=== PATIENT | male | born 1990 | race Caucasian/White ===

== ENCOUNTER 2022-05-31 13:49 | Emergency (ER) | payer MEDICAID, SELFPAY ==
[2022-05-31 14:10] VITALS: BP 152/104; PULSE 67; RESP 20; O2SAT 98; BMI 34.5
--- NOTE | 2022-05-31 14:18 | ED_ITS ---
HPI - Abdominal Pain General Chief Complaint: Abdominal Pain Stated Complaint: Abd pain Time Seen by Provider: 05/31/22 19:44 Related Data Allergies Allergy/AdvReac Type Severity Reaction Status Date / Time No Known Allergies Allergy Verified 05/31/22 14:14 [facility] Social History Social History Advance Directives: No Advance Directives Information Provided: No Physical Exam ED Vital Signs: Vital Signs - 24 hr 05/31/22 14:10 Pulse Rate 67 Respiratory Rate 20 Blood Pressure 152/104 H Pulse Oximetry 98 Oxygen Delivery Method Room Air BMI result Body Mass Index 34.5 MDM - Abdominal Pain Lab Data Result diagrams: 05/31/22 14:22 05/31/22 14:22 Labs: Lab Results 05/31/22 05/31/22 05/31/22 Range/Units 14: 14: 14:22 WBC 15.8 H (4.8-10.8) X10*3/uL RBC 5.53 (4.60-5.80) X10*6/uL Hgb 14.9 (14.0-18.0) g/dl Hct 45.3 (42.0-52.0) % MCV 81.9 (80.0-98.0) fL MCH 26.9 L (27.0-33.0) pg MCHC 32.9 (31.0-36.0) g/dl RDW 13.4 (11.0-16.0) % Plt Count 280 (160-400) X10*3/uL MPV 11.0 (9.4-12.4) fL Immature Gran % (Auto) 0.4 (0.0-0.4) % Neut % (Auto) 77.5 H (45-73) % Lymph % (Auto) 14.2 L (20-40) % [place] % (Auto) 6.5 (2-11) % Eos % (Auto) 1.0 (0-4) % Baso % (Auto) 0.4 (0-2) % Lymph # (Auto) 2.2 (1.2-4.9) X10*3/uL [place] # (Auto) 1.0 (0.1-1.2) X10*3/uL Eos # (Auto) 0.2 (0.0-0.4) X10*3/uL Baso # (Auto) 0.1 (0.0-0.2) X10*3/uL Abs Immat Gran (auto) 0.06 H (0.00-0.03) X10*3/uL Absolute Neuts (auto) 12.2 H (2.0-8.3) x10*3/uL Absolute Nucleated RBC 0.000 (0.0-0.012) X10*3/uL Nucleated RBC % (auto) 0.0 (0.0-0.2) /100WBC Sodium 138 (135-145) mmol/L Potassium 4.4 (3.3-5.1) mmol/L Chloride 105 (96-108) mmol/L Carbon Dioxide 26 (22-29) mmol/L Anion Gap 11 L (12-20) BUN 16 (9-16) mg/dL Creatinine 0.83 (0.5-1.4) mg/dL Estim Creat Clear Calc 164.6 Estimated GFR > 60 Random Glucose 108 (60-115) mg/dL Calcium 9.4 (8.4-10.2) mg/dL Urine Color Yellow Urine Appearance Clear Urine pH 5.5 (5.0-9.0) Ur Specific [place] >= 1.030 H (1.005-1.025) Urine Protein Trace (Neg-Trace) mg/dL Urine Glucose (UA) Negative (Negative) mg/dL Urine Ketones Trace (Negative) mg/dL Urine Blood Negative (Negative) Urine Nitrite Negative (Negative) Ur Leukocyte Esterase Negative (Negative) Discharge Plan Discharge Clinical Impression: Pain in the abdomen Patient Disposition: Elopement
[2022-05-31 14:27] LABS: MANUAL DIFF FLAG NO
[2022-05-31 14:28] LABS: Basophils Absolute Auto 0.1 X10*3/uL (0.0-0.2); Basophils Percent Auto 0.4 % (0-2); Eosinophils Absolute Auto 0.2 X10*3/uL (0.0-0.4); Hematocrit 45.3 % (42.0-52.0); Hemoglobin 14.9 g/dl (14.0-18.0); Imm Gran Abs Auto 0.06 X10*3/uL (0.00-0.03); Imm Gran Pct Auto 0.4 % (0.0-0.4); Lymphocytes Absolute Auto 2.2 X10*3/uL (1.2-4.9); Lymphocytes Percent Auto 14.2 % (20-40); Mean Corpuscular HGB Conc 32.9 g/dl (31.0-36.0); Mean Corpuscular Hemoglobin 26.9 pg (27.0-33.0); Mean Corpuscular Volume 81.9 fL (80.0-98.0); Monocytes Percent Auto 6.5 % (2-11); Neutrophils Absolute Auto 12.2 x10*3/uL (2.0-8.3); Neutrophils Percent Auto 77.5 % (45-73); Platelet Count 280 X10*3/uL (160-400); Red Blood Count 5.53 X10*6/uL (4.60-5.80); Red Cell Distribution Width 13.4 % (11.0-16.0); White Blood Count 15.8 X10*3/uL (4.8-10.8)
[2022-05-31 14:35] LABS: Appearance Urine Clear; Color Urine Yellow; Glucose Urine UA Negative (Negative); Leukocyte Esterase Urine Negative (Negative); Nitrite Urine Negative (Negative); PH 5.5 (5.0-9.0); Specific Gravity - Urine >= 1.030 (1.005-1.025); Urine Blood Negative (Negative); Urine Ketones Trace mg/dL (Negative); Urine Protein Trace mg/dL (Neg-Trace)
[2022-05-31 14:48] LABS: Anion Gap 11 (12-20); Blood Urea Nitrogen 16 mg/dL (9-16); Calcium 9.4 mg/dL (8.4-10.2); Carbon Dioxide 26 mmol/L (22-29); Chloride 105 mmol/L (96-108); Creatinine Clr Calc Pharmacy 164.6; Estimated Glomerular Filt Rate > 60; Glucose Random 108 mg/dL (60-115); Potassium 4.4 mmol/L (3.3-5.1); Sodium 138 mmol/L (135-145)
== END 2022-06-01 03:44 | disposition left against medical advice (07) ==
PROVIDERS: Emergency Medicine; Emergency Provider Emergency Medicine
DX: R10.9 Unspecified abdominal pain (principal); F12.90 Cannabis use, unspecified, uncomplicated
CPT/HCPCS: 36415; 80048; 81003; 85025; 99281; 99283

== ENCOUNTER 2022-06-01 20:22 | Emergency (ER) | payer MEDICAID, SELFPAY ==
--- NOTE | ~2022-06-01 | US_ITS ---
EXAMINATION: US SCROTUM CLINICAL INFORMATION: Left testicular pain. COMPARISON: None TECHNIQUE: A sonogram of the scrotum was performed assessing heck-scale appearance and color Doppler flow. Spectral Doppler analysis of the arterial and venous flow were performed in the testes bilaterally. FINDINGS: RIGHT: Right testicle measures 4.3 x 2.4 x 2.6 cm, volume 14 mL. No focal testicular parenchymal lesions are visualized. Mildly heterogeneous testicular parenchyma. Spectral Doppler analysis of the arterial and venous flow is increased in the right testis. Right epididymal head is normal in size. No right hydrocele or varicocele is seen. Right epididymal Doppler flow is increased. LEFT: Left testicle measures 3.4 x 1.8 x 2.4 cm, volume 7.7 mL. No focal testicular parenchymal lesions are visualized. Spectral Doppler analysis of the arterial and venous flow is increased in the left testis. Left epididymal head is normal in size. No left hydrocele or varicocele is seen. Left epididymal Doppler flow is increased. US/US scrotum doppler IMPRESSION: * Mildly decreased bilateral testicular volume, particularly on the left. * Mildly heterogeneous bilateral testicular parenchyma is nonspecific. * Per report, the vascularity within the bilateral testicles and epididymides is increased, however symmetrically. As such, this finding may be artifactual. The heterogeneous testicular parenchyma, however, could be compatible with orchitis, in this case, bilateral.
--- NOTE | ~2022-06-01 | US_ITS ---
EXAMINATION: US SCROTUM CLINICAL INFORMATION: Left testicular pain. COMPARISON: None TECHNIQUE: A sonogram of the scrotum was performed assessing heck-scale appearance and color Doppler flow. Spectral Doppler analysis of the arterial and venous flow were performed in the testes bilaterally. FINDINGS: RIGHT: Right testicle measures 4.3 x 2.4 x 2.6 cm, volume 14 mL. No focal testicular parenchymal lesions are visualized. Mildly heterogeneous testicular parenchyma. Spectral Doppler analysis of the arterial and venous flow is increased in the right testis. Right epididymal head is normal in size. No right hydrocele or varicocele is seen. Right epididymal Doppler flow is increased. LEFT: Left testicle measures 3.4 x 1.8 x 2.4 cm, volume 7.7 mL. No focal testicular parenchymal lesions are visualized. Spectral Doppler analysis of the arterial and venous flow is increased in the left testis. Left epididymal head is normal in size. No left hydrocele or varicocele is seen. Left epididymal Doppler flow is increased. US/US scrotum IMPRESSION: * Mildly decreased bilateral testicular volume, particularly on the left. * Mildly heterogeneous bilateral testicular parenchyma is nonspecific. * Per report, the vascularity within the bilateral testicles and epididymides is increased, however symmetrically. As such, this finding may be artifactual. The heterogeneous testicular parenchyma, however, could be compatible with orchitis, in this case, bilateral.
--- NOTE | ~2022-06-01 | CT_ITS ---
EXAMINATION: CT ABDOMEN AND PELVIS WITH CONTRAST CLINICAL INFORMATION: Left lower quadrant pain COMPARISON: None TECHNIQUE: Multidetector volumetric images were obtained from the superior aspect of the liver through the pubic symphysis following administration 85 mL of Omnipaque 350 intravenous contrast. Sagittal and coronal reformatted images were obtained on the technologist's workstation. Oral contrast: No This CT examination was performed using dose optimization techniques as appropriate, variously including the following: *Automated exposure control *Adjustment of mA and/or kV according to patient size (this includes techniques or standardized protocols for targeted exams where dose is matched to indication/reason for exam; i.e. extremities or head) *Use of iterative reconstruction technique DLP: 832 mGy-cm FINDINGS: LUNG BASES: The visualized lung bases are unremarkable. LIVER, GALLBLADDER, AND BILIARY TREE: The liver is normal in size, shape, and attenuation. No focal hepatic lesion or biliary ductal dilatation is present. The gallbladder is unremarkable with no evidence of radiopaque gallstones, gallbladder wall thickening, or obvious pericholecystic inflammatory changes. PANCREAS: Unremarkable. SPLEEN: Unremarkable. ADRENAL GLANDS: Unremarkable. KIDNEYS AND URETERS: The kidneys are normal in size, shape, and attenuation. There is a 6 mm hypodensity seen in the left mid kidney which does not measure water density and is therefore indeterminate. No hydronephrosis, hydroureter, or calculi seen. No perinephric stranding. BLADDER: Unremarkable. GASTROINTESTINAL TRACT: The small and large bowel are unremarkable. The appendix is unremarkable. ABDOMINAL WALL: No significant hernia is appreciated. LYMPH NODES: Shotty retroperitoneal lymph nodes are present but there is no adenopathy. VASCULAR: Unremarkable. PELVIC VISCERA: Unremarkable. OSSEOUS STRUCTURES: Unremarkable. CT/CT abdomen pelvis w IV con IMPRESSION: 1. A cause for the patient's left lower quadrant pain has not been found. 2. Incidental note made of a 6 mm hypodensity in the left mid kidney which does not measure water density. This could be a complex cyst or a small solid mass. Ultrasound should be performed for further evaluation. Fleischner guidelines were followed.
[2022-06-01 20:33] VITALS: BP 172/103; PULSE 82; RESP 18; TEMP 36.5; O2SAT 98; BMI 31.8
--- NOTE | 2022-06-01 20:35 | ED.GENADULT ---
HPI - General Adult General Chief complaint: Urogenital-Male Stated complaint: Pain L abdominal/ groin area Time Seen by Provider: 06/01/22 20:30 Source: patient Mode of arrival: ambulatory Limitations: no limitations History of Present Illness HPI narrative: This is a 32-year-old male no significant medical history presenting to the emergency department with complaints of severe left-sided testicular pain x2 days. Patient tells me that yesterday he felt some discomfort to his left lower abdomen and then realize that really he was feeling pain in his testicle as well. Pain came on suddenly. He rates it as greater than 10/10 and constant w/o radiation. He tells me it is worse with ambulation and movement better at rest. Tells me he has not been able to tolerate p.o.. He tells me his testicle is tender to the touch. He tells me when he looks at his testicles no noted abnormalities. He denies concerns for STDs or STIs would not like prophylactic treatment. Patient tells me he is not having abdominal pain however is constipated and has not had a bowel movement for 2 days, reports he typically has daily bowel movements. Denies fevers, chills, chest pain, shortness of breath, abdominal pain, headache, vision changes, penile discharge, rashes or lesions in genital area, new sexual partners. Related Data Previous Rx's Medication Instructions Recorded levofloxacin 750 mg tablet 750 mg PO DAILY 14 days #14 tabs 06/01/22 morphine 15 mg immediate release 15 mg PO BID PRN pain #8 tabs 06/01/22 tablet Allergies Allergy/AdvReac Type Severity Reaction Status Date / Time No Known Allergies Allergy Verified 06/01/22 20:32 Review of Systems Review of Systems: Constitutional : No Weight loss, No Fever, No Chills, No Fatigue, No Malaise ENT/Mouth : No sore throat, No Rhinorrhea Eyes: No Eye Pain, No Swelling, No Redness Cardiovascular : No Chest Pain, No SOB, No Dyspnea on Exertion, No Orthopnea, No Edema, No Palpitations Respiratory : No Cough, No Sputum, No Wheezing Gastrointestinal : No Nausea, No Vomiting, No Diarrhea, No Constipation, No abdominal Pain, No Hematochezia, No Melena Genitourinary : No Dysuria, No Urinary Frequency, No Hematuria, + left sided testicular pain Musculoskeletal : No joint pain, No Myalgias, No Joint Swelling Skin : No Skin Lesions, No rash Neuro : No Weakness, No Numbness, No Dizziness, No Headache Psych : No Anxiety/Panic, No Depression All other systems reviewed and are negative Yes all other systems are reviewed and are negative [facility] Past Medical History Attestation statement: The following information was validated with the patient. Source: old records reviewed and nursing notes reviewed Social History Social History Smoked in Last 30 Days: Yes Use of substances other than those prescribed or required for medical reasons: Yes Substance Use Type: Marijuana Advance Directives: No Advance Directives Information Provided: Yes Physical Exam ED Vital Signs: Vital Signs - 24 hr 06/01/22 20:33 06/01/22 21:49 06/01/22 22:04 Temperature 97.7 F 98.9 F 98.9 F Pulse Rate 82 70 57 Respiratory Rate 18 20 20 Blood Pressure 172/103 H 138/74 Pulse Oximetry 98 100 Oxygen Delivery Method Room Air Room Air BMI result Body Mass Index 31.8 vss Appearance: Alert.? Oriented X3.? No acute distress.? Head: Normocephalic, atraumatic, no step-offs or deformities Eyes: Pupils equal, round and reactive to light.? Neck: Normal inspection.? Neck supple.? CVS: Normal heart rate and rhythm.? Pulses normal.? Respiratory: No respiratory distress.? Breath sounds normal.? Abdomen: Soft and nontender.? Skin: Skin warm and dry.? Normal skin color.? Normal skin turgor.? Extremities: No lower extremity edema.? No calf ttp. 5/5 strength to bilateral upper and lower extremities : Pain with palpation of left-sided testicle, no pain with palpation of right-sided testicle. No lumps or masses appreciable on exam. No overlying erythema or warmth. Hard to assess cremasteric reflex patient is jerking in pain. Normal external genitalia, no penile discharge no lesions lumps or masses. Neuro: Oriented X 3.? No motor deficit.? No sensory deficit. CN 2-12 intact Course Reevaluation(s) Reevaluation #1: CBC with slight leukocytosis, chemistry with no acute electrolyte abnormalities requiring intervention. Urine clean. CT of the abdomen and pelvis with no acute findings. Incidental note with 6 mm hypodensity in the left mid kidney. Educated patient on this. Scrotal ultrasound as mildly decreased bilateral testicular volume particularly on the left bilateral testicular parenchyma is nonspecific. Vascularity within bilateral testicles and epididymis is increased, concerns for possible orchitis. Chlamydia gonorrhea pending. I had my attending evaluate patient who agrees with my diagnosis and treatment plan likely orchitis however recommended to reach out to urology for treatment plan. No signs of torsion on imaging. Patient was given ceftriaxone here. Will reach out to urology Dr. Yoo Time: 22:40 Reevaluation #2: Discussed this case with Dr. Yoo who states likely orchitis in likely E coli as causative agent in this age group. He reports patient should receive a dose of Rocephin and should be discharged home on 14 days of Levaquin. Will discharge him home with Urology follow-up at this time. Educated to return with new or worsening symptoms. Outlined worrisome signs and symptoms on discharge. Comfortable with discharge home with prompt PCP follow-up, urology follow-up. And return to the emergency department with new or worsening symptoms To know at time of discharge patient feeling better. Time: 22:54 Medications Administered Discontinued Medications Generic Name Dose Route Start Last Admin Trade Name Freq PRN Reason Stop Dose Admin Docusate Sodium 100 mg 06/01/22 21:56 06/01/22 22:04 Docusate Sodium 100 Mg Capsule PO 06/01/22 21:57 100 mg ONCE ONE Administration Ceftriaxone Sodium 1 gm/ 50 mls @ 100 mls/hr 06/01/22 21:56 06/01/22 22:04 Sodium Chloride IV 06/01/22 22:25 100 mls/hr ONCE ONE Administration Iohexol 100 ml 06/01/22 21:44 06/01/22 21:44 Iohexol 350 Mg/Ml 100 Ml Infus..Btl IV 06/01/22 21:45 85 ml ONCE ONE Administration Morphine Sulfate 4 mg 06/01/22 20:40 06/01/22 21:51 Morphine Sulfate 4 Mg/Ml Cartridge IVPUSH 06/01/22 20:41 4 mg ONCE ONE Administration Protocol Ondansetron HCl 4 mg 06/01/22 21:58 06/01/22 22:04 Ondansetron Hcl 4 Mg/2 Ml Vial IVPUSH 06/01/22 21:59 4 mg ONCE ONE Administration Senna 15 ml 06/01/22 21:56 06/01/22 22:04 Senna [place] Extract Oral Syrup 15 Ml Syrup PO 06/01/22 21:57 15 ml ONCE ONE Administration Medical Decision Making [facility] Narrative Medical decision making narrative: [birth year]34 32-year-old male presents with severe left-sided testicular pain x2 days sudden in onset. Reports anorexia, inability to tolerate p.o., nausea. Rates pain greater than 10/10. To note patient was seen here yesterday he checked in with abdominal pain, had labs which showed leukocytosis however patient decided to elope. No imaging was done. Physical examination significant for Pain with palpation of left-sided testicle, no pain with palpation of right-sided testicle. No lumps or masses appreciable on exam. Hard to assess squamous stare reflexes patient is jerking and pain. Normal external genitalia, no penile discharge no lesions lumps or masses. Concerns for testicular torsion scrotal Doppler ultrasound ordered stat. Patient has no concerns for STDs however will obtain gonorrhea and chlamydia test, he does not want prophylactic treatment I explained him of test come back positive we will call him with results he is agreeable to treatment if this happens. Obtain basic labs, urine. Also obtain CT of the abdomen pelvis to rule out intra-abdominal etiologies although less likely. No signs of acute abdomen, diverticulitis, cholecystitis, appendicitis or pancreatitis on exam. Will rule out nephrolithiasis. Will give morphine for pain. Medical Records Medical records reviewed: Yes I reviewed the patient's medical records. Lab Data Lab results reviewed: Yes I reviewed the patient's lab results. Result diagrams: 06/01/22 20:46 06/01/22 20:46 Labs: Lab Results 06/01/22 06/01/22 06/01/22 Range/Units 20:46 20:46 21:20 WBC 13.8 H (4.8-10.8) X10*3/uL RBC 5.59 (4.60-5.80) X10*6/uL Hgb 14.7 (14.0-18.0) g/dl Hct 45.5 (42.0-52.0) % MCV 81.4 (80.0-98.0) fL MCH 26.3 L (27.0-33.0) pg MCHC 32.3 (31.0-36.0) g/dl RDW 13.4 (11.0-16.0) % Plt Count 275 (160-400) X10*3/uL MPV 11.0 (9.4-12.4) fL Immature Gran % (Auto) 0.3 (0.0-0.4) % Neut % (Auto) 70.7 (45-73) % Lymph % (Auto) 20.6 (20-40) % [place] % (Auto) 7.2 (2-11) % Eos % (Auto) 0.9 (0-4) % Baso % (Auto) 0.3 (0-2) % Lymph # (Auto) 2.8 (1.2-4.9) X10*3/uL [place] # (Auto) 1.0 (0.1-1.2) X10*3/uL Eos # (Auto) 0.1 (0.0-0.4) X10*3/uL Baso # (Auto) 0.0 (0.0-0.2) X10*3/uL Abs Immat Gran (auto) 0.04 H (0.00-0.03) X10*3/uL Absolute Neuts (auto) 9.7 H (2.0-8.3) x10*3/uL Absolute Nucleated RBC 0.000 (0.0-0.012) X10*3/uL Nucleated RBC % (auto) 0.0 (0.0-0.2) /100WBC Sodium 141 (135-145) mmol/L Potassium 3.8 (3.3-5.1) mmol/L Chloride 105 (96-108) mmol/L Carbon Dioxide 23 (22-29) mmol/L Anion Gap 17 (12-20) BUN 13 (9-16) mg/dL Creatinine 0.81 (0.5-1.4) mg/dL Estim Creat Clear Calc 176.2 Estimated GFR > 60 Random Glucose 114 (60-115) mg/dL Calcium 9.3 (8.4-10.2) mg/dL Magnesium 2.2 (1.6-2.6) mg/dL Total Bilirubin 0.9 (0.0-1.0) mg/dL AST 20 (5-37) U/L ALT 26 (0-40) U/L Alkaline Phosphatase 79 (39-117) U/L Total Protein 7.1 (6.5-8.0) g/dL Albumin 4.4 (3.5-5.0) g/dL Urine Color Urine Appearance Urine pH (5.0-9.0) Ur Specific [place] (1.005-1.025) Urine Protein (Neg-Trace) mg/dL Urine Glucose (UA) (Negative) mg/dL Urine Ketones (Negative) mg/dL Urine Blood (Negative) Urine Nitrite (Negative) Ur Leukocyte Esterase (Negative) COVID-19 (YUMIKO) Negative (Negative) COVID-19 Clin Com See Note 06/01/22 Range/Units 22:15 WBC (4.8-10.8) X10*3/uL RBC (4.60-5.80) X10*6/uL Hgb (14.0-18.0) g/dl Hct (42.0-52.0) % MCV (80.0-98.0) fL MCH (27.0-33.0) pg MCHC (31.0-36.0) g/dl RDW (11.0-16.0) % Plt Count (160-400) X10*3/uL MPV (9.4-12.4) fL Immature Gran % (Auto) (0.0-0.4) % Neut % (Auto) (45-73) % Lymph % (Auto) (20-40) % [place] % (Auto) (2-11) % Eos % (Auto) (0-4) % Baso % (Auto) (0-2) % Lymph # (Auto) (1.2-4.9) X10*3/uL [place] # (Auto) (0.1-1.2) X10*3/uL Eos # (Auto) (0.0-0.4) X10*3/uL Baso # (Auto) (0.0-0.2) X10*3/uL Abs Immat Gran (auto) (0.00-0.03) X10*3/uL Absolute Neuts (auto) (2.0-8.3) x10*3/uL Absolute Nucleated RBC (0.0-0.012) X10*3/uL Nucleated RBC % (auto) (0.0-0.2) /100WBC Sodium (135-145) mmol/L Potassium (3.3-5.1) mmol/L Chloride (96-108) mmol/L Carbon Dioxide (22-29) mmol/L Anion Gap (12-20) BUN (9-16) mg/dL Creatinine (0.5-1.4) mg/dL Estim Creat Clear Calc Estimated GFR Random Glucose (60-115) mg/dL Calcium (8.4-10.2) mg/dL Magnesium (1.6-2.6) mg/dL Total Bilirubin (0.0-1.0) mg/dL AST (5-37) U/L ALT (0-40) U/L Alkaline Phosphatase (39-117) U/L Total Protein (6.5-8.0) g/dL Albumin (3.5-5.0) g/dL Urine Color Yellow Urine Appearance Clear Urine pH 6.5 (5.0-9.0) Ur Specific [place] 1.020 (1.005-1.025) Urine Protein Negative (Neg-Trace) mg/dL Urine Glucose (UA) Negative (Negative) mg/dL Urine Ketones Negative (Negative) mg/dL Urine Blood Negative (Negative) Urine Nitrite Negative (Negative) Ur Leukocyte Esterase Negative (Negative) COVID-19 ([facility]UMIKO) (Negative) COVID-19 Clin Com Critical Care Time Critical Care Time Critical Care Time: Yes Total Critical Care Time: 35 Attestation: I attest to this time spent taking care of the patient, obtaining history, physical, reviewing labs, imaging, speaking to my attending, speaking to specialist. Discharge Plan Discharge Clinical Impression: Left testicular pain, Orchitis Patient Disposition: Home, Self-Care Instructions: Testicle Pain (ED), Orchitis (ED) Additional Instructions: Take your medications as prescribed. If you were prescribed antibiotics today, it is important that you take your medication to their entirety, do not skip any doses, do not finish them early. Follow-up with your primary care provider this week. Please follow-up with urology information below. Return to the emergency department with new or worsening symptoms. Such as fevers, chills, chest pain, shortness of breath, nausea, vomiting, dizziness, headache, vision changes, lethargy, worsening pain, penile discharge In case of emergency call 911 Elevate your testicle. Some tests are still pending and you will receive a call only if they are abnormal. Levofloxacin is an antibiotic that belongs to a class called fluoroquinolones a warning on these antibiotics as that can cause tendon rupture if you experience any pain to any joints or tendons please seek medical attention immediately. To decrease chances of this please to not participate in any physical activity for 2-3 weeks and while taking these antibiotics. Please seek medical clearance prior to initiating exercise or physical activity. US/US scrotum IMPRESSION: *? Mildly decreased bilateral testicular volume, particularly on the left. *? Mildly heterogeneous bilateral testicular parenchyma is nonspecific. ? *? Per report, the vascularity within the bilateral testicles and epididymides is increased, however symmetrically. As such, this finding may be artifactual. The heterogeneous testicular parenchyma, however, could be compatible with orchitis, in this case, bilateral. ? CT/CT abdomen pelvis w IV con IMPRESSION: 1.? A cause for the patient's left lower quadrant pain has not been found. 2.? Incidental note made of a 6 mm hypodensity in the left mid kidney which does not measure water density. This could be a complex cyst or a small solid mass. Ultrasound should be performed for further evaluation. ? Fleischner guidelines were followed. Prescriptions: New levofloxacin 750 mg tablet 750 mg PO DAILY 14 Days Qty: 14 0RF morphine 15 mg tablet 15 mg PO BID PRN (Reason: pain) Qty: 8 0RF Rx Instructions: Partial Fill upon patient request. Referrals: [facility] [Provider Group] - 2 days Physician,None [Primary Care Provider] - 2 days Stand Alone Forms: Work/School Release
[2022-06-01 20:50] LABS: MANUAL DIFF FLAG NO
[2022-06-01 20:52] LABS: Basophils Percent Auto 0.3 % (0-2); Eosinophils Absolute Auto 0.1 X10*3/uL (0.0-0.4); Eosinophils Percent Auto 0.9 % (0-4); Hematocrit 45.5 % (42.0-52.0); Hemoglobin 14.7 g/dl (14.0-18.0); Imm Gran Abs Auto 0.04 X10*3/uL (0.00-0.03); Imm Gran Pct Auto 0.3 % (0.0-0.4); Lymphocytes Absolute Auto 2.8 X10*3/uL (1.2-4.9); Lymphocytes Percent Auto 20.6 % (20-40); Mean Corpuscular HGB Conc 32.3 g/dl (31.0-36.0); Mean Corpuscular Hemoglobin 26.3 pg (27.0-33.0); Mean Corpuscular Volume 81.4 fL (80.0-98.0); Monocytes Percent Auto 7.2 % (2-11); Neutrophils Absolute Auto 9.7 x10*3/uL (2.0-8.3); Neutrophils Percent Auto 70.7 % (45-73); Platelet Count 275 X10*3/uL (160-400); Red Blood Count 5.59 X10*6/uL (4.60-5.80); Red Cell Distribution Width 13.4 % (11.0-16.0); White Blood Count 13.8 X10*3/uL (4.8-10.8)
[2022-06-01 21:12] LABS: Alanine Aminotransferase 26 U/L (0-40); Albumin Level 4.4 g/dL (3.5-5.0); Alkaline Phosphatase 79 U/L (39-117); Anion Gap 17 (12-20); Aspartate Amino Transferase 20 U/L (5-37); Bilirubin Total 0.9 mg/dL (0.0-1.0); Blood Urea Nitrogen 13 mg/dL (9-16); Calcium 9.3 mg/dL (8.4-10.2); Carbon Dioxide 23 mmol/L (22-29); Chloride 105 mmol/L (96-108); Creatinine Clr Calc Pharmacy 176.2; Estimated Glomerular Filt Rate > 60; Glucose Random 114 mg/dL (60-115); Magnesium 2.2 mg/dL (1.6-2.6); Potassium 3.8 mmol/L (3.3-5.1); Sodium 141 mmol/L (135-145); Total Protein 7.1 g/dL (6.5-8.0)
[2022-06-01 21:38] LABS: COVID-19 Test Negative (Negative)
[2022-06-01] MEDS: iohexoL 350 MG/ML 100 ML INFUS..BTL IV (21:44)
[2022-06-01 21:49] VITALS: PULSE 70; RESP 20; TEMP 37.2
[2022-06-01] MEDS: Morphine Sulfate 4 MG/ML CARTRIDGE IVPUSH (21:51)
[2022-06-01 22:04] VITALS: BP 138/74; PULSE 57; RESP 20; TEMP 37.2; O2SAT 100
[2022-06-01] MEDS: Docusate Sodium 100 MG CAPSULE PO (22:04)
[2022-06-01] MEDS: ondansetron HCL 4 MG/2 ML VIAL IVPUSH (22:04)
[2022-06-01] MEDS: cefTRIAXone sodium 1 GM in 0.9 % Sodium Chloride 50 ML IV (22:04)
[2022-06-01 22:22] LABS: Appearance Urine Clear; Color Urine Yellow; Glucose Urine UA Negative (Negative); Leukocyte Esterase Urine Negative (Negative); Nitrite Urine Negative (Negative); PH 6.5 (5.0-9.0); Urine Blood Negative (Negative); Urine Ketones Negative (Negative); Urine Protein Negative (Neg-Trace)
[2022-06-02 04:58] LABS: CT PCR NOT DETECTED (Not Detect.); NG PCR NOT DETECTED (Not Detect.)
== END 2022-06-01 23:21 | disposition home or self-care (01) ==
PROVIDERS: Physician Assistant; Emergency Provider Internal Medicine
DX: N45.2 Orchitis (principal); N50.812 Left testicular pain; R10.2 Pelvic and perineal pain; R10.30 Lower abdominal pain, unspecified; Z20.822 Contact with and (suspected) exposure to COVID-19; Z79.899 Other long term (current) drug therapy
CPT/HCPCS: 74177; 76870; 80053; 81003; 83735; 85025; 87491; 87591; 87635; 93975; 96365; 96375; 99284; J0696; J2270; J2405; Q9967